=== PATIENT | female | born 1990 | race Caucasian/White ===

== ENCOUNTER 2018-05-24 07:46 | Emergency (ER) | payer OTHER ==
[~2018-05-24] VITALS: Ht 167.6 cm; Wt 63.6 kg
[2018-05-24 07:57] VITALS: BP 148/111; PULSE 102; RESP 15; Ht 167.6 cm; Wt 63.6 kg
[2018-05-24] MEDS ORDERED: NALOXONE (0.4 MG/ML) INJ IV STA (08:07)
[2018-05-24] MEDS ORDERED: SOD CHLORIDE 0.9% 500 ML IV STA (08:07)
--- NOTE | 2018-05-24 10:00 | NUR ---
MARVIN Note: Call from ED received stating assistance with needed facilitating safe discharge. Pt (+) for opioids and team requesting assistance locating patients support system for transportation home. SW met with the patient in the ED. Patient presents lethargic with slurred speech. Pt reports that she lives at the address listed on the face sheet with her parents, but her parents are currently in [place]. Pt unable to recall the events leading to her arrival in the ED. Pt unsure how she got to [facility] or where she was prior. Pt also denies drug use. Pt states that she only recalls being with her ex-boyfriend Florin ([phone]). Patient believes that all her belongs are with Florin. SW attempted to contacted the number provided by the patient and the number was disconnected. SW attempted to reach patients mother Rosaura ([phone]) and there was no answer after this senior medical writer called several times. Bedside RN aware of SW efforts. Pt cannot recall any other phone numbers. SW awaiting for the patient to become more alert. Addendum: 05/24/18 at 1425 by COLLEEN OHARA MARVIN did not leave a VM on mother's phone as there was no identifiable voicemail set up.
--- NOTE | 2018-05-24 11:44 | ERD ---
ER Documentation Chief Complaint Chief Complaint found sleeping in a parking lot with soma bottle HPI This is 27-year-old female who is here because a bystander called the paramedics because the patient was laying on a park bench asleep. The paramedics said she had a bottle of Soma on her but it was not empty. Patient is minimally conversive here and tells me that she is from [place] and was in [place] trying to pickle processor her car. She says she did not member much about last night. She denied taking extra Soma. Denies any headache neck pain ROS All systems reviewed and are negative except as per history of present illness. Allergies Allergies: Coded Allergies: No Known Allergy (Unverified , 05/24/18) PMhx/Soc Smoking Status: Unknown if ever smoked FmHx Family History: No coronary disease Physical Exam Vitals Vital Signs Date Temp Pulse Resp B/P (MAP) Pulse Ox O2 O2 Flow FiO2 Time Delivery Rate 05/24/18 97.8 102 15 148/111 100 07:57 (123) Physical Exam Const: Well-developed, well-nourished Head: Atraumatic, normocephalic Eyes: Normal Conjunctiva, PERRLA, EOMI, normal sclera, no nystagmus ENT: Normal External Ears, Nose and Mouth, moist mucus membranes. Neck: Full range of motion. No meningismus, no lymphadenopathy. Resp: Clear to auscultation bilaterally, no wheezing, rhonchi, rales Cardio: Regular rate and rhythm, no murmurs, S1 S2 present Abd: Soft, non tender x 4, non distended. Normal bowel sounds, no guarding or rebound, no pulsitile abdominal masses or bruits Skin: No petechiae or rashes, no ecchymosis , no maculopapular rash Back: No midline or flank tenderness Ext: No cyanosis, or edema, FROM x 4, normal inspection, neurovasc ularly intact x 4 Neur: Groggy but arousable STR 5/5 x 4, sensation intact x 4, no focal findings, cerebellum intact] Psych: Normal Mood and Affect Result Diagram: 05/24/18 0851 05/24/18 0851 Results 24 hrs Laboratory Tests Test 05/24/18 08:47 05/24/18 08:51 Urine Opiates Screen Positive Urine Barbiturates Negative Urine Amphetamines Screen Negative Urine Benzodiazepines Screen Negative Urine Cocaine Screen Negative Urine Cannabinoids Negative White Blood Count 5.0 10^3/ul Red Blood Count 4.16 10^6/ul Hemoglobin 13.9 g/dl Hematocrit 40.8 % Mean Corpuscular Volume 98.1 fl Mean Corpuscular Hemoglobin 33.4 pg Mean Corpuscular Hemoglobin Concent 34.1 g/dl Red Cell Distribution Width 11.9 % Platelet Count 272 10^3/UL Mean Platelet Volume 9.1 fl Immature Granulocytes % 0.600 % Neutrophils % 50.3 % Lymphocytes % 39.0 % Monocytes % 8.3 % Eosinophils % 1.2 % Basophils % 0.6 % Nucleated Red Blood Cells % 0.0 /100WBC Immature Granulocytes # 0.030 10^3/ul Neutrophils # 2.5 10^3/ul Lymphocytes # 1.9 10^3/ul Monocytes # 0.4 10^3/ul Eosinophils # 0.1 10^3/ul Basophils # 0.0 10^3/ul Nucleated Red Blood Cells # 0.0 10^3/ul Sodium Level 143 mmol/L Potassium Level 3.9 mmol/L Chloride Level 105 mmol/L Carbon Dioxide Level 28 mmol/L Anion Gap 10 Blood Urea Nitrogen 5 mg/dl Creatinine 0.59 mg/dl Est Glomerular Filtrat Rate mL/min > 60 mL/min Glucose Level 83 mg/dl Calcium Level 9.0 mg/dl Total Bilirubin 0.2 mg/dl Direct Bilirubin 0.00 mg/dl Indirect Bilirubin 0.2 mg/dl Aspartate Amino Transf (AST/SGOT) 62 IU/L Alanine Aminotransferase (ALT/SGPT) 81 IU/L Alkaline Phosphatase 72 IU/L Total Protein 7.2 g/dl Albumin 4.0 g/dl Globulin 3.20 g/dl Albumin/Globulin Ratio 1.25 Serum HCG, Qualitative NEGATIVE Salicylates Level < 1.0 mg/dl Acetaminophen Level < 10.0 ug/ml Ethyl Alcohol Level < 10.0 mg/dl Current Medications Medications Dose Sig/Deepak Start Time Status Last (Trade) Ordered Route PRN Stop Time Admin Dose Reason Admin Sodium 500 ml @ Q1H STAT 05/24/18 DC 05/24/18 Chloride 500 mls/hr IV 08:07 09:10 05/24/18 09:06 Naloxone 0.4 mg ONCE STAT 05/24/18 DC 05/24/18 HCl IV 08:07 09:10 (Narcan) 05/24/18 08:09 Procedures/MDM MR #: [id number] DOS: 05/24/1807 Ordering MD: JOSE BLACKWELL DO Location: E/R Room/Bed: PROCEDURE: CT brain without contrast CLINICAL INDICATION: Medical clearance. Head pain TECHNIQUE: CT of the brain without contrast was performed on a multidetector CT scanner, with multiplanar reformats. One or more of the following dose reduction techniques were used: Automated exposure control, adjustment in mA and / or kV according to patient size, use of iterative reconstructive technique. CTDIvol = 40 mGy; DLP = 634 mGy-cm. DICOM images are available. COMPARISON: None available FINDINGS: There are mild patient motion related artifacts. No acute intracranial hemorrhage is identified. No extra-axial fluid collection is seen. There is no mass effect. No midline shift is identified. The ventricles and sulci are within normal limits for size and configuration. The density of the visualized brain is unremarkable. Visualized denis-white junctions are preserved. Calvarium and skull base are intact. Mastoid air cells and imaged paranasal sinuses grossly clear. IMPRESSION: No acute intracranial pathology identified. RPTAT: [facility] .Ishan Colin MD, Date Time Electronically viewed and signed by .Ishan Colin MD, on 05/24/2018 08:36 .O/ CC: JOSE BLACKWELL DO [id number] The patient was given some Narcan and shortly thereafter she did improve. Patient's been observed here in the ER for several hours. The patient is ambulatory to the bathroom on multiple occasions.. The patient is awake and alert and oriented. We will discharge her home shortly Departure Diagnosis: Primary Impression: Substance abuse Additional Impression: Accidental overdose Encounter type: initial encounter Qualified Codes: T50.901A - Poisoning by unspecified drugs, medicaments and biological substances, accidental (unintentional), initial encounter Condition: Stable Patient Instructions: Substance abuse, Overdose, Accidental (Adult) JOSE BLACKWELL DO May 24, 2018 11:44
== END 2018-05-24 13:54 | disposition home or self-care (01) ==
LOC: E/R 07:46
DX: F19.10 Other psychoactive substance abuse, uncomplicated (principal); R51 Headache
CPT/HCPCS: 36415; 70450; 80053; 80306; 80307; 84703; 85025; 96374; J2310; J7040; Z7502